=== PATIENT | female | born 2000 | race Caucasian/White ===

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

== ENCOUNTER 2023-01-23 09:57 | Outpatient (REF) | payer BC, SELFPAY ==
[2023-01-24 15:28] LABS: Chlamydia Result Negative (Negative); GC Result Negative (Negative)
== END 2023-01-23 09:58 | disposition home or self-care (01) ==
LOC: LBN 09:57
PROVIDERS: Visit Provider Nurse Practitioner Women's Health
DX: Z11.3 Encounter for screening for infections with a predominantly sexual mode of transmission (principal)
CPT/HCPCS: 87491; 87591

== ENCOUNTER 2023-05-29 10:44 | Outpatient (REF) | payer BC, SELFPAY ==
--- NOTE | 2023-05-29 10:40 | PAPFT_PTH ---
PATIENT: Heather Chau LOC: [facility] U#:[id number] AGE/SX: 23/F ROOM: RE05/29/[address]: Niya Petersen NP : 2000 BED: DIS: 05/29/2023 SPEC #: [id number] RECD: 05/29/23 13:10 STATUS: CLAUDE CHAPPELL #: [id number] TATIANA: 05/29/23 10:[address]: Niya Petersen NP DEPT: [facility] Cytology RECD BY: Janee Eller ENTERED: 05/29/23 13:11 SP TYPE: PAPFT OTHR DR: Jeanne Greenberg MD Tissues: 1 - CX/ENDOCX FOR PAP SMEARS Procedures: PAP THIN PREP/[facility] Screening Comments: [id number]
== END 2023-05-29 10:45 | disposition home or self-care (01) ==
LOC: LBN 10:44
PROVIDERS: Visit Provider Nurse Practitioner Women's Health
DX: N76.0 Acute vaginitis (principal); R30.0 Dysuria; Z12.4 Encounter for screening for malignant neoplasm of cervix
CPT/HCPCS: 88142; 87086; 87480; 87510; 87660

== ENCOUNTER 2023-11-15 15:07 | Outpatient (REF) | payer BC, SELFPAY ==
[2023-11-18 12:42] LABS: Chlamydia Result Negative (Negative); GC Result Negative (Negative)
== END 2023-11-15 15:08 | disposition home or self-care (01) ==
LOC: LBN 15:07
PROVIDERS: Visit Provider Advanced Practice Midwife
DX: Z11.3 Encounter for screening for infections with a predominantly sexual mode of transmission (principal)
CPT/HCPCS: 87491; 87591

== ENCOUNTER 2023-11-18 18:14 | Outpatient (REF) | payer BC, SELFPAY ==
[2023-11-18 17:37] LABS: HCT 39.2 % (36.0-46.0); HGB 13.2 g/dL (11.2-15.7); MCH 31.7 pg (27.0-33.0); MCHC 33.7 % (32.0-36.0); MCV 94 fL (80-95); MPV 10.6 fL (8.0-11.0); Platelet Count 321 10^3/uL (130-400); RBC 4.17 10^6/uL (3.93-5.22); RDW 12.1 % (11.7-14.6); WBC 6.77 10^3/uL (4.4-10.8)
== END 2023-11-18 18:15 | disposition home or self-care (01) ==
LOC: LBN 18:14
PROVIDERS: Visit Provider Advanced Practice Midwife
DX: N92.5 Other specified irregular menstruation (principal)
CPT/HCPCS: 85027

== ENCOUNTER 2024-01-02 19:33 | Outpatient (REF) | payer BC, SELFPAY ==
[2024-01-02 21:25] LABS: TSH (W/Ref FT4) 1.39 uIU/mL (0.36-3.74)
== END 2024-01-02 19:34 | disposition home or self-care (01) ==
LOC: NCHCN 19:33
PROVIDERS: Visit Provider Family Medicine
DX: N92.1 Excessive and frequent menstruation with irregular cycle (principal)
CPT/HCPCS: 84443